=== PATIENT | female | born 1980 | race African-American/Black ===

== ENCOUNTER 2019-10-03 19:18 | Inpatient (IN) | payer OTHER ==
[~2019-10-03] VITALS: Ht 160 cm; Wt 45.4 kg
--- NOTE | ~2019-10-03 | O ---
[facility] [place] [address] OPERATIVE REPORT Name: SERGIO RODAS Room #: 458-P ADM IN M.R.#: [id number] Admission: 10/03/19 Attend Phys: Aram Piper MD Discharge: Date of : 82 Report #: [id number] THIS REPORT FOR: cc: LISANDRA - No family physician/PCP LISANDRA - [facility] family physician/PCP Johnathan Altamirano MD ~ CC: [facility] physician/PCP Aram Piper DATE OF SERVICE: 10/06/2019 PREOPERATIVE DIAGNOSIS: Small-bowel obstruction. POSTOPERATIVE DIAGNOSIS: Small-bowel obstruction. OPERATION: Diagnostic laparoscopy with laparoscopic enterolysis. SURGEON: Johnathan Altamirano MD ANESTHESIA: General. ESTIMATED BLOOD LOSS: Minimal. SPECIMEN: None. DESCRIPTION OF PROCEDURE: After informed consent was obtained, the patient was brought to the operating room and placed supine. SCDs were placed and working, preoperative antibiotics were administered, general anesthesia was induced. The abdomen was prepped and draped in the usual sterile fashion. A 5 mm incision was made in the left upper quadrant. A 5 mm trocar was placed under direct vision. Pneumoperitoneum was established. Two left-sided 5 mm trocars were placed under direct vision. The small bowel was almost all dilated. I was able to run the small bowel. In the distal small bowel approximately 3 cm from the cecum, she had an adhesive band to another piece of small bowel. This caused a little tunnel to form and that is where the small bowel was being pinched off. This adhesive band was incised sharply. This released the adhesion. This allowed the small bowel to be free. I then ran the small bowel from the cecum to the ligament of Treitz and there were no more obstructions. The ports were then removed under direct vision. The skin was closed with 4-0 Monocryl. Incisions were sealed with Dermabond. COMPLICATIONS: None. [facility] [address] [place] [address] OPERATIVE REPORT Name: SERGIO RODAS Natalya Room #: 458-P [facility].#: [id number] Admission: 10/03/19 Attend Phys: Aram Piper MD Discharge: Date of : 82 Report #: [id number] DISPOSITION: The patient was taken to recovery in satisfactory condition. By: [id number] Johnathan Altamirano MD /nt
[~2019-10-03 19:18] MED LIST: AMITRIPTYLINE H25 M2 PO; CIPROFLOXACIN500 M3 OR; DARVOCET-N 1001 EAC1 PO; DIFLUCAN150 MG PO; NOHOMEMEDICATIONS; ONDANSETRON HCL4 M2 PO; PHENERGAN 25 MG25 MG PO; PROTONIX40 M2 PO; PYRIDIUM200 MG PO; TUMS PO; ZOFRAN ODT4 MG PO; ZPAK PO
[2019-10-03 19:39] VITALS: BP 148/110
[2019-10-03 21:52] LABS: URINE BLOOD TRACE (Negative); URINE CLARITY CLEAR; URINE COLOR YELLOW; URINE GLUCOSE-RANDOM* NEGATIVE (Negative); URINE KETONES 2+ (Negative); URINE LEUKOCYTES-REFLEX NEGATIVE (Negative); URINE NITRITE-REFLEX NEGATIVE (Negative); URINE PROTEIN (DIPSTICK) 2+ (Negative); URINE SPECIFIC GRAVITY >= 1.030 (1.005-1.035)
[2019-10-03 21:54] LABS: ABSOLUTE NEUTROPHILS 3.8 thou/uL (1.4-8.2); BASOPHILS 0.2 % (0.0-2.0); EOSINOPHILS 0.2 % (0.0-3.0); HEMATOCRIT 42.7 % (37.0-47.0); LYMPHOCYTES 11.3 % (24.0-44.0); MCH 28.9 pg (26.0-34.0); MCHC 32.7 g/dL (28.0-37.0); MCV 88.3 fL (80.0-100.0); MONOCYTES 9.8 % (1.0-8.0); PLATELET COUNT 472 thou/uL (150-400); POLYS 78.5 % (36.0-66.0); RBC 4.84 mil/uL (4.20-5.00); RDW 15.9 % (10.5-14.5); WBC 4.9 thou/uL (4.0-11.0)
[2019-10-03 22:02] LABS: ANION GAP 16 mmol/L (7-16); BUN 20 mg/dL (7-18); CALCIUM 9.7 mg/dL (8.5-10.1); CHLORIDE 96 mmol/L (98-107); CO2 26 mmol/L (21-32); CREATININE 0.6 mg/dL (0.6-1.0); GLUCOSE 108 mg/dL (74-106); POTASSIUM 3.7 mmol/L (3.5-5.1); SODIUM 138 mmol/L (136-145)
[2019-10-03 22:03] LABS: AMP/METHAMP Negative (Negative); BARBITURATES Negative (Negative); BENZODIAZEPINES Negative (Negative); COCAINE Negative (Negative); METHADONE Negative (Negative); OPIATES Negative (Negative); PCP Negative (Negative)
[2019-10-03 22:09] LABS: ICTOTEST (BILI CONFIRMATORY) Negative (Negative); URINE BILIRUBIN NEGATIVE (Negative)
[2019-10-03 22:12] LABS: ALBUMIN 3.9 g/dL (3.4-5.0); LIPASE 40 U/L (73-393); SGOT 25 U/L (15-37); SGPT 27 U/L (30-65); TOTAL BILIRUBIN 0.6 mg/dL (0.2-1.0); TOTAL PROTEIN 8.7 g/dL (6.4-8.2); TROPONIN-I <0.06 ng/mL (<0.06)
[2019-10-03 22:18] LABS: HYALINE CASTS 0-3 Few /LPF (None Seen); MUCUS 4-6 Moderate strn/LPF (None Seen); SQUAMOUS None Seen /LPF (0-3)
[2019-10-03 22:19] LABS: BACTERIA-REFLEX None Seen /HPF (None Seen); CRYSTALS None Seen /LPF (None Seen); URINE RBC 0-2 Rare /HPF (0-2); URINE WBC-REFLEX None Seen /HPF (0-5)
[2019-10-03 23:28] VITALS: BP 123/86
[2019-10-04 00:19] VITALS: BP 142/108
[2019-10-04 00:40] VITALS: BP 155/114
--- NOTE | 2019-10-04 05:34 | NUR ---
PT WAS ADMITTED TO THE UNIT IN A STABLE CONDITION.PT HAS NG TUBE TO HER R NARE HOOKED UP TO SUCTION.GREENISH/BROWN DRAINAGE NOTED IN THE CANNISTER.PT SWABBED FOR COVID AND SENT TO THE LAB.PT C/O GEN ABD PAIN AND NAUSEA,MANAGED WITH MED.PT SLEEPING ON HER BED AT THIS TIME.CALL LIGHT WITHIN REACH.
[2019-10-04 07:43] VITALS: BP 152/110
--- NOTE | 2019-10-04 11:43 | NUR ---
PT ADMITTED RELATED TO SBO. PT CURRENTLY HAS NGT IN PLACE AND SURGERY HAS BEEN CONSULTED. CM REVIEWED CHART AND SPOKE WITH CARE TEAM. CM CALLED AND SPOKE WITH PT THIS AM. PT INDICATED SHE LIVES IN AN APARTMENT WITH HER CHILDREN WITH 16 STEPS TO ENTER AND NONE INSIDE. PT INDICATED SHE HAD BEEN STAYING WITH HER SISTER WHERE THERE AREN'T ANY STEPS PRIOR TO ADMISSION. SHE INDICATED HE SISTER AND MOTHER ARE CARING FOR HER KIDS. 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 PT INDICATED NO DME OR HH HX. PT'S PCP IS DR. CHRISTI CROOKS AT [facility]. PT INDICATED SHE PLANS TO RETURN HOME OR TO HER SISTERS ONCE MEDICALLY STABLE. CM TO FOLLOW SHOULD ANY DC NEEDS ARISE.
--- NOTE | 2019-10-04 14:02 | NUR ---
Assumed patient care at 0715. All vital signs stable except she continues to have HTN and pulse is Tachy. This is most likely related to her abdominal pain which she rates at a "level ten." Patient is alert and oriented x's 4, assist x's 1. NG Tube is in the right nostril with low intermittent suctioning. There is approximately 400cc's of dark brown gastric fluid in the suction container. Patient has requested and received Morphine and Zofran every four hours. Normal Saline continues at 75cc/hour as ordered. She continues to be NPO. Surgery is pending, as well is Covid Test. Patient does seem to have some anxiety related to the NG Tube. She called her Mother and informed her that "my organs are failing!." Mother called this nurse. This nurse informed patient's Mother that this was no true. Education provided which eased Mother's mind. Will continue to monitor.
--- NOTE | 2019-10-04 16:21 | NUR ---
Surgery say pt and indicated that pt with small bowel obstruction vs. severe ileus. They recommend NG tube for now to see if this will resolve with decompressing the bowel. They stated that if it does not she may require abdominal exploration. It is anticipated that pt will likely be able to dc home with no needs once medically stable. Cm able to follow as indicated with dc planning.
[2019-10-04 20:15] VITALS: BP 134/94
--- NOTE | 2019-10-05 05:17 | NUR ---
PATIENT ALERT AND ORIENTED X4. TEARFUL AT BEGINNING OF SHIFT DUE TO NG AND FEELING BAD. NG TO RIGHT NARE IN PLACE WITH GREEN DISCHARGE. REMAINS NPO. IVF INFUSING W/O COMPLICATION. REQUESTING ICE CHIPS WHICH SHE PUTS IN A TOWEL AND PLACES ON HER FOREHEAD. MEDICATED FOR PAIN X2 AT TIME OF NOTE, ALSO MEDICATED FOR NAUSEA X2. WILL MONITOR. NO EMESIS.
[2019-10-05 06:01] LABS: INR 1.2; PROTIME 12.1 Seconds (9.3-11.4)
[2019-10-05 06:02] LABS: CALCIUM 8.2 mg/dL (8.5-10.1); CREATININE 0.4 mg/dL (0.6-1.0); MAGNESIUM 1.9 mg/dL (1.8-2.4)
[2019-10-05 06:04] LABS: POTASSIUM 3.9 mmol/L (3.5-5.1)
[2019-10-05 07:54] VITALS: BP 150/100
[2019-10-05 07:55] VITALS: BP 150/100
--- NOTE | 2019-10-05 15:26 | NUR ---
Received awake on bed. Due medications given as prescribed. On nothing per orem, pt informed and aware. A+Ox4. On telemetry, no complaints of chest pain, crushing sensation and heaviness. On room air. Vital signs stable. With NG tube at R nare- connected to low intermittent suction; output measured and recorded accordingly. With NS at 125cc/hr, infusing well at R EJ; dressing C/D/I. Assisted in ADLs. Complained of pain, due PRN pain meds given as prescribed. Continent of bowel and bladder, using bedpan at times.
[2019-10-05 19:48] VITALS: BP 138/94
[2019-10-06] VITALS (8 sets, daily range): BP systolic 123–141; BP diastolic 90–98
[2019-10-06 01:10] LABS: CALCIUM 8.2 mg/dL (8.5-10.1); CREATININE 0.5 mg/dL (0.6-1.0); MAGNESIUM 1.9 mg/dL (1.8-2.4); PHOSPHORUS 2.4 mg/dL (2.5-4.9); TOTAL BILIRUBIN 0.3 mg/dL (0.2-1.0); TOTAL PROTEIN 7.6 g/dL (6.4-8.2)
--- NOTE | 2019-10-06 05:06 | NUR ---
patient aox4 makes needs known.pain controlled this shift. labs were done at 0037 pottassium was 3.1, glucose was 58 called qa automation architect new order of hypoglycemia protocal and 40 meq pottassium iv x 2 bags. ppn started. patient on ng tube 55cm long, x ray done to checkng placement. greenish outpit from ng. patient uses bed fisher at night. fall precaution in place. call light and personal belonging within reach. patient in bed asleep at this time breathing regular and unlaboured.
[2019-10-06 05:44] LABS: MCH 29.3 pg (26.0-34.0); MCHC 33.1 g/dL (28.0-37.0); MCV 88.6 fL (80.0-100.0); RBC 3.95 mil/uL (4.20-5.00); RDW 15.9 % (10.5-14.5); WBC 6.6 thou/uL (4.0-11.0)
[2019-10-06 05:50] LABS: HEMOGLOBIN 11.6 gm/dL (12.0-15.0)
--- NOTE | 2019-10-06 16:53 | NUR ---
CONSULTED TO PLACE A PICC FOR A PATIENT STARTING ON TPN. ORDER AND CONSENT WAS NOTED AND QUAESTIONS WERE ANSWERED. A #4F DOUBLE LUMEN POWER PICC WAS PLACED PER HOSPTAL POLICY AFTER A BEDSIDE TIMEOUT WAS COMPLETED. LINE WAS TRIMMED TO 40CM AND ADVANCED WITHOUT DIFFICULTY. A STAT CHEST XRAY CONFIRMED LINE IN APPROPRIATE POSITION
--- NOTE | 2019-10-06 18:08 | NUR ---
Assumed patient care at 0715. Vital signs stable, LSCTA, ABD is distended and tender, skin is clean, warm, dry and intact. NG Tube is on low, intermittent suctioning. Patient on PPN at 70cc/hr and NS at 55cc/hour. Patient has been NPO since her arrival on 10/03/19. She has been very irritable, complaining about staff to her daughter on the phone. Dr Altamirano came to assess patient. She complained to him and about his manner. Dr Altamirano was very professional, polite and smiling while he explained the procedure to her. Patient was taken to surgery at approximately 1450. Her daughter called this nurse to complain about the staff and Doctor, stating "I outta just come there to get my mother and take her to another Hospital!" Daughter explained that her mother left AMA from [facility] because they were unhappy with the care at that facility. Daughter also informed this nurse "I recorded some of the conversations with the doctors and nurses at [facility]", and, "maybe I should come over there and do the same!" This nurse explained to patient's daughter that her mother is not feeling well and that staff has been treating her with kidness and respect. Daughter did not have anything left to say after this. Patient arrived back from surgery at approximately 1750. She has three lap sites on left side of abdomen, closed with surgical glue. The surgery was a Diagnostic Laproscopy, Laproscopy with Lysis of Adhesions and Release of Bowel Obstruction. Patient is resting quietly with eyes closed. Vital signs are stable. She continues on Room Air. PICC Line placed in Right Upper Arm this afternoon. Will report to on-coming nurse.* Patient requested and received Fentanyl q 4 hours prior to the surgery.*
--- NOTE | 2019-10-07 01:25 | NUR ---
PATIENT AOX4 MAKES NEEDS KNOWN. NAUSEA AND PAIN CONTROLLED THIS SHIFT. PATIENT HAS 3 NEW LAP SITES AND 3 OLD LAP SITES WITH DERMAL AHUMADA, NO S/S OF INFECTION. PATIENT WAS ABLE TO SIT ON THE SIDE OF THE BED AND USE A BEDSIDE COMMODE THIS SHIFT. TPN STARTED THIS SHIFT.FALL PRECAUTION IN PLACE. PATIENT IN BED ASLEED AT THIS TIME BREATHING REGULAR AND UNLABOURED.
[2019-10-07 06:14] VITALS: BP 120/86
[2019-10-07 07:22] VITALS: BP 133/90
[2019-10-07 08:17] LABS: CALCIUM 8.3 mg/dL (8.5-10.1); CREATININE 0.4 mg/dL (0.6-1.0); PHOSPHORUS 1.7 mg/dL (2.5-4.9); POTASSIUM 3.5 mmol/L (3.5-5.1)
[2019-10-07 15:20] VITALS: BP 140/95
[2019-10-07 20:12] VITALS: BP 138/95
--- NOTE | 2019-10-07 20:50 | NUR ---
Assumed patient care at 0715. Vital signs stable, LSCTA, ABD distended and tender. Lap sites from yesterdays surgery are clean, dry and intact: no signs/symptoms of infection. Patient has needed assistance getting up to use the bedside commode. She has done well on clear liquids. Patient has requested and received Fentanyl 50mcg IV push at 0944 and at 1830 for "level six to eight" abdominal pain. Medication has been effective. Report given to noc shift nurse.
--- NOTE | 2019-10-08 05:33 | NUR ---
ASSUMED PT CARE AT 2001. PT IS A&OX4. VSS. PT COMPLAINS OF PAIN 6 OUT OF 10. FENTANYL WAS ADMINISTERED. PT COMPLAINS OF NAUSEA. ODANSETRON WAS ADMINISTERED. PT GETS UP SBA TO THE RR. LATE AT NIGHT SHE USED THE BSC. PT WAS PLEASANT. ADJUSTING THE LIQUID DIET WELL. PT STATES THAT SHE IS NO LONGER NAUSEOUS. WILL CONTINUE TO MONITOR.
[2019-10-08 06:00] LABS: CALCIUM 8.2 mg/dL (8.5-10.1); CREATININE 0.5 mg/dL (0.6-1.0); MAGNESIUM 1.9 mg/dL (1.8-2.4); PHOSPHORUS 2.5 mg/dL (2.5-4.9); POTASSIUM 3.2 mmol/L (3.5-5.1)
[2019-10-08 07:36] VITALS: BP 128/89
--- NOTE | 2019-10-08 14:10 | NUR ---
DR. RAMIRES INDICATED THAT PT IS PROGRESSING WELL TOWARD GOAL OF DC. PT'S DIET HAS BEEN ADVANCED. PHYSICIAN INDICIATED POSIBLE DC HOME TOMORROW. CM TO FOLLOW SHOULD ANY DC NEEDS ARISE.
--- NOTE | 2019-10-08 16:50 | NUR ---
Assumed pt care this am, VS stable. received on clear liquids. Pain is managed with medications, prefers no narcotics. Nausea is managed with medications partial relief is noted. seen by surgeon diet is to be advanced as tolerated. Pt took at complete bath today. POC followed with no signs of distress.
[2019-10-08 20:21] VITALS: BP 134/100
--- NOTE | 2019-10-09 05:41 | NUR ---
ASSUMED PT CARE AT 1905. PT IS A&OX4. VSS. PT DOES NOT SLEEP AT NIGHT. PT REQUESTED ORAL PAIN MEDICATION. PAIN IN THE RIGH SIDE OF HER ABDOMEN AT A 6 ON A 1/10 SCALE. I CHANGED THE BAG OF TPN. PT DID COMPLAIN OF NAUSEA AT THE BEGINING OF THE SHIFT. PT ATE A SMALL PORTION OF HER DINNER TRAY. PT HAS NO COMPLAINTS OF NAUSEA AT THIS MOMENT. PT IS EATING BROTH, WATER AND POPCICLE IN HER ROOM. PT STATES THAT SHE WANTED THE NAUSEA MEDICATION BECAUSE SHE DID NOT WANT IT TO CREEP BACK UP. WILL CONTINUE TO MONITOR.
[2019-10-09 07:59] VITALS: BP 119/84
[2019-10-09 09:09] LABS: CREATININE 0.3 mg/dL (0.6-1.0); MAGNESIUM 1.3 mg/dL (1.8-2.4); PHOSPHORUS 2.8 mg/dL (2.5-4.9)
[2019-10-09 09:12] LABS: POTASSIUM 2.3 mmol/L (3.5-5.1)
--- NOTE | 2019-10-09 10:21 | NUR ---
CARE TEAM INDICATED THAT PT IS MEDICALLY STABLE TO DISCHARGE HOME THIS DAY. PT IS TO DC HOME TO SELF CARE. NO OTHER CM INTERVENTION INDICATED. CASE CLOSED.
--- NOTE | 2019-10-09 15:16 | NUR ---
CARE TEAM INDICATED THAT PT HAS LOW POTASSIUM AND THAT THEY ARE WORKING TO ADDRESS THAT PRIOR TO DC. CM TO FOLLOW INDICATED WITH DC PLANNING. IT IS ANTICPATED THAT PT WILL DC HOME ONCE MEDICALLY STABLE.
[2019-10-09 16:35] LABS: CREATININE 0.6 mg/dL (0.6-1.0)
[2019-10-09 16:37] LABS: CALCIUM 8.6 mg/dL (8.5-10.1); POTASSIUM 4.2 mmol/L (3.5-5.1)
[2019-10-09 17:29] VITALS: BP 119/84
--- NOTE | 2019-10-09 18:16 | NUR ---
Assumed pt care this am, VS stable, TPN on going. Potassium was was critically low, protocol followed K is now 4.2. DC instructions given to the pt and mother. PICC line removed line intact and complete. POC followed chucho no signs or verbalizations of ditress noted. Diet and medications are well tolerated. Pt is now dc, mother picked up the pt in the ER.
== END 2019-10-09 18:19 | disposition home or self-care (01) | DRG 336 ==
LOC: ER 19:18 → EROBS 23:10 → 4W 23:10
PROVIDERS: Hospitalist; Nurse Practitioner Family; Physician Assistant; Surgery; ADMIT Internal Medicine; ATTEND Internal Medicine
PROC: 0DN84ZZ Release Small Intestine, Percutaneous Endoscopic Approach (ICD-10-PCS; principal; 2019-10-06)
PROC: 02HV33Z Insertion of Infusion Device into Superior Vena Cava, Percutaneous Approach (ICD-10-PCS; principal; 2019-10-06)
PROC: B548ZZA Ultrasonography of Superior Vena Cava, Guidance (ICD-10-PCS; principal; 2019-10-06)
DX: K91.89 Other postprocedural complications and disorders of digestive system (principal); K56.609 Unspecified intestinal obstruction, unspecified as to partial versus complete obstruction; Y83.8 Other surgical procedures as the cause of abnormal reaction of the patient, or of later complication, without mention of misadventure at the time of the procedure; D64.9 Anemia, unspecified; Z20.828 Contact with and (suspected) exposure to other viral communicable diseases; Y92.89 Other specified places as the place of occurrence of the external cause; Z90.49 Acquired absence of other specified parts of digestive tract; Z88.8 Allergy status to other drugs, medicaments and biological substances; Z79.899 Other long term (current) drug therapy
CPT/HCPCS: 10040; 10045; 27000; 50010; 50101; 50249; 50411; 50555; 51489; 52265; 53307; 54118; 56462; 56525; 56526; 62110; 62900; 70005

== ENCOUNTER 2020-06-18 12:03 | Emergency (ER) | payer OTHER ==
[~2020-06-18] VITALS: Ht 160 cm; Wt 49.0 kg
[2020-06-18 13:16] LABS: ABSOLUTE NEUTROPHILS 6.4 thou/uL (1.4-8.2); BASOPHILS 0.4 % (0.0-2.0); HEMATOCRIT 41.7 % (37.0-47.0); HEMOGLOBIN 14.4 gm/dL (12.0-15.0); LYMPHOCYTES 5.7 % (24.0-44.0); MCH 31.8 pg (26.0-34.0); MCHC 34.5 g/dL (28.0-37.0); MCV 92.3 fL (80.0-100.0); MONOCYTES 2.7 % (1.0-8.0); PLATELET COUNT 268 thou/uL (150-400); POLYS 91.2 % (36.0-66.0); RBC 4.52 mil/uL (4.20-5.00); RDW 13.8 % (10.5-14.5); WBC 7.1 thou/uL (4.0-11.0)
[2020-06-18 13:25] LABS: CALCIUM 9.3 mg/dL (8.5-10.1); CREATININE 0.7 mg/dL (0.6-1.0); POTASSIUM 4.3 mmol/L (3.5-5.1)
[2020-06-18 13:31] LABS: ALBUMIN 4.3 g/dL (3.4-5.0); TOTAL BILIRUBIN 0.3 mg/dL (0.2-1.0); TOTAL PROTEIN 8.4 g/dL (6.4-8.2)
[2020-06-18 13:40] LABS: URINE BILIRUBIN NEGATIVE (Negative); URINE BLOOD 3+ (Negative); URINE CLARITY CLEAR; URINE COLOR YELLOW; URINE GLUCOSE-RANDOM* NEGATIVE (Negative); URINE KETONES NEGATIVE (Negative); URINE LEUKOCYTES-REFLEX NEGATIVE (Negative); URINE NITRITE-REFLEX NEGATIVE (Negative); URINE PROTEIN (DIPSTICK) 1+ (Negative); URINE UROBILINOGEN 0.2 E.U./dl (0.2-1.0)
[2020-06-18 13:48] LABS: AMP/METHAMP Negative (Negative); BARBITURATES Negative (Negative); BENZODIAZEPINES Negative (Negative); COCAINE Negative (Negative); METHADONE Negative (Negative); OPIATES Negative (Negative); PCP Negative (Negative)
[2020-06-18 13:50] LABS: SQUAMOUS 4-10 Moderate /LPF (0-3); URINE RBC >20 Many /HPF (NONE SEEN)
[2020-06-18 13:51] LABS: BACTERIA-REFLEX 1-9 Few /HPF (None Seen); CASTS None Seen /LPF (None Seen); CRYSTALS None Seen /LPF (None Seen); URINE WBC-REFLEX 0-5 Rare /HPF (0-5)
[2020-06-18] MEDS ORDERED: HALDOL 0.5 MG0.5 M1 PO (14:29)
[2020-06-18 14:58] VITALS: BP 137/87
== END 2020-06-18 15:31 | disposition home or self-care (01) ==
LOC: ER 12:03
PROVIDERS: Emergency Medicine
DX: R11.2 Nausea with vomiting, unspecified (principal); R10.84 Generalized abdominal pain; K21.9 Gastro-esophageal reflux disease without esophagitis; Z88.8 Allergy status to other drugs, medicaments and biological substances